=== PATIENT | male | born 1990 | race American Indian/Alaskan Native ===

== ENCOUNTER 2018-11-29 23:00 | Emergency (ER) | payer OTHER ==
[2018-11-29 23:28] VITALS: BP 139/93
--- NOTE | 2018-11-29 23:44 | Emergency Department Report ---
ED Trauma HPI - General Chief Complaint: Multiple Trauma Stated Complaint: FALL Time Seen by Provider: 11/29/18 23:30 Source: patient, EMS Exam Limitations: no limitations - History of Present Illness Initial Comments: Patient is a 28-year-old male that presents emergency room with complaints of headache, left flank pain and left knee pain and left upper arm pain and right hand pain and abrasions. Patient states he was working on a swift and fell off. Patient denies loss of consciousness. Complaining of a headache at a 10 out of 10. Patient states that he fell approximately 10-12 feet. Patient denies chest pain and shortness of breath. Patient is complaining of flank pain at a 10 out of 10. Patient is complaining of arm and knee pain and hand pain at a 8 out of 10. Patient denies radiating pain. Patient states he is unclear on some of the details. Patient states when he fell he fell directly on his right hand and head and neck. Occurred: just prior to arrival Severity: severe Pain Location: head Method of Injury: fall Modifying Factors: improves with: movement, rest Loss of Consciousness: no loss of consciousness Associated Symptoms (Fall): abdominal pain, headache. denies: chest pain, confusion, dizziness, lightheadedness, muscle spasms, nausea/vomiting, neck pain, ringing in ears, seizures, shortness of breath, trouble walking, vision changes Allergies/Adverse Reactions: Allergies Penicillins Allergy (Verified 11/29/18 23:04) Unknown Home Medications: Ambulatory Orders Metaxalone [Skelaxin] 800 mg PO TID PRN #15 tablet 11/30/18 Tramadol HCl [Ultram] 50 mg PO Q6HR PRN #12 tablet 11/30/18 ED Review of Systems ROS: Stated complaint: FALL Other details as noted in HPI Constitutional: denies: chills, fever Eyes: denies: eye pain, eye discharge, vision change ENT: denies: ear pain, throat pain Respiratory: denies: cough, shortness of breath, wheezing Cardiovascular: denies: chest pain, palpitations Endocrine: no symptoms reported Gastrointestinal: abdominal pain. denies: nausea, diarrhea Genitourinary: denies: urgency, dysuria Musculoskeletal: back pain. denies: joint swelling, arthralgia Skin: denies: rash, lesions Neurological: headache. denies: weakness, paresthesias Psychiatric: denies: anxiety, depression Hematological/Lymphatic: denies: easy bleeding, easy bruising ED Past Medical Hx - Past Medical History Previous Medical History?: No - Surgical History Past Surgical History?: Yes Additional Surgical History: Hernia Repair - Family History Family history: no significant - Social History Smoking Status: Never Smoker Substance Use Type: None - Medications Home Medications: Home Medications Medication Instructions Recorded Confirmed Last Taken Type Metaxalone [Skelaxin] 800 mg PO TID PRN #15 tablet 11/30/18 Unknown Rx Tramadol HCl [Ultram] 50 mg PO Q6HR PRN #12 tablet 11/30/18 Unknown Rx ED Physical Exam - General Limitations: No Limitations General appearance: alert, in no apparent distress - Head Head exam: Present: other (laceration noted above right eye) - Eye Eye exam: Present: normal appearance, PERRL Pupils: Present: normal accommodation - Expanded Eye Exam Expanded Eyelids: Normal Inspection: Left, Swelling: Right (small superficial abrasion noted to rt upper lid. ) Pupils: Regular, Round: Bilateral, Reactive: Bilateral Sclera/Conjunctival: Normal Inspection: Bilateral - ENT ENT exam: Present: mucous membranes moist - Neck Neck exam: Present: normal inspection, tenderness - Respiratory Respiratory exam: Present: normal lung sounds bilaterally. Absent: respiratory distress, wheezes, rales, rhonchi - Cardiovascular Cardiovascular Exam: Present: regular rate, normal rhythm. Absent: systolic murmur, diastolic murmur, rubs, gallop - GI/Abdominal GI/Abdominal exam: Present: soft, tenderness (left flank tenderness and left lower quad ttp ), normal bowel sounds - Rectal Rectal exam: Present: deferred - Extremities Exam Extremities exam: Present: tenderness (left upper extremity abrasion and tenderness. Left knee tenderness. Right hand tenderness) - Back Exam Back exam: Present: tenderness (left flank tenderness and abrasions noted), CVA tenderness (L) - Neurological Exam Neurological exam: Present: alert, oriented X3 - Psychiatric Psychiatric exam: Present: normal affect, normal mood - Skin Skin exam: Present: warm, dry, normal color, abrasion. Absent: rash ED Course Vital Signs 11/29/18 11/29/18 23:20 23:22 Temperature 98.7 F 98.7 F Pulse Rate 63 59 L Respiratory 16 20 Rate Blood Pressure 139/93 139/93 O2 Sat by Pulse 100 100 Oximetry - Reevaluation(s) Reevaluation #1: Initial evaluation done. Patient was placed in a c-collar until C-spine cleared by CT scan. Patient is unclear on some of the details. 11/29/18 23:47 Patient is resting in bed. CT scans are pending. 11/30/18 02:[address] neck negative. Discussed results with patient. C-collar removed 11/30/18 03:59 Discussed all results with patient. Patient is stable for discharge. Patient discharged home. Patient given discharge instructions. 11/30/18 04:25 ED Medical Decision Making - Lab Data Result diagrams: 11/29/18 23:58 11/29/18 23:58 - Radiology Data Radiology results: report reviewed, image reviewed PROCEDURE: XR KNEE 4+V LT TECHNIQUE: 4 views of the left knee. HISTORY: Pain/fall. COMPARISONS: None available FINDINGS: Osseous mineralization is normal. There is no acute fracture identified. No significant degenerative change. Suggested small suprapatellar joint effusion. IMPRESSION: No acute fracture or dislocation. Suggested small suprapatellar joint effusion. PROCEDURE: XR HUMERUS 2+V LT TECHNIQUE: 4 views of the left humerus. HISTORY: Pain, fall. COMPARISONS: None available. FINDINGS: Osseous mineralization normal. There is no acute fracture or dislocation involving the left humerus. No abnormal soft tissue calcification. IMPRESSION: No acute left humerus osseous abnormality. PROCEDURE: XR HAND 3+V RT TECHNIQUE: 3 views of the right hand. HISTORY: pain,. fall COMPARISONS: None available. FINDINGS: Osseous mineralization is normal. Mild remodeling at the index finger distal phalanx, chronic appearance. No acute fracture. Suggested mild degenerative changes at the middle finger metacarpal phalangeal joint. Incidental osseous lunotriquetral coalition. IMPRESSION: 1. Mild degenerative changes of the middle finger metacarpophalangeal articulation remodeling of the index finger distal phalanx, chronic appearance. 2. No acute osseous abnormality. PROCEDURE: CT CERVICAL SPINE WO CON TECHNIQUE: Computerized tomography of the cervical spine was performed from the skull base to T1 without contrast material. CT DOSE LENGTH PRODUCT: mGycm HISTORY: fall./ pain. COMPARISONS: None . FINDINGS: The skull base and foramen magnum are intact. The cervical vertebrae are intact. C1-2: No significant abnormality . C2-3: No significant abnormality . C3-4: No significant abnormality . C4-5: No significant abnormality . C5-6: No significant abnormality . C6-7: No significant abnormality . C7-T1: No significant abnormality . Fractures: None . Other: Soft tissues are unremarkable. . IMPRESSION: No significant abnormality . PROCEDURE: CT HEAD/BRAIN WO CON TECHNIQUE: Computerized tomography of the head was performed without contrast material. CT DOSE LENGTH PRODUCT: mGycm HISTORY: head injury COMPARISONS: None . FINDINGS: Skull and scalp: Normal . Paranasal sinuses: Normal . Ventricles and subarachnoid spaces: Normal . Cerebrum: No evidence of hemorrhage, acute infarction or mass . Cerebellum and brainstem: No evidence of hemorrhage, acute infarction or mass . Vasculature: Normal . IMPRESSION: Normal Examination . PROCEDURE: CT THORACIC SPINE WO CON TECHNIQUE: Computerized axial tomography of the thoracic spine was performed from C7 - L1 without contrast material. CT DOSE LENGTH PRODUCT: mGycm HISTORY: fall./ pain. COMPARISONS: None . FINDINGS: There are no fractures or malalignments. The disc spaces are normal. The facet joints are intact. There is no spinal or foraminal stenosis. Soft tissues are unremarkable. IMPRESSION: There is no acute bony or soft tissue abnormality. . PROCEDURE: CT LUMBAR SPINE WO CON TECHNIQUE: Computerized axial tomography of the lumbar spine was performed from T12 to the sacrum without contrast material. CT DOSE LENGTH PRODUCT: mGycm HISTORY: fall./ pain. COMPARISONS: None . FINDINGS: There are no fractures or malalignments. The disc spaces are normal. The facet joints are intact. L1-2: No significant abnormality . L2-3: No significant abnormality . L3-4: No significant abnormality . L4-5: No significant abnormality . L5-S1: No significant abnormality . Other: Sacrum and sacroiliac joints are intact. Soft tissues are unremarkable. . IMPRESSION: No significant abnormality . PROCEDURE: CT ABDOMEN PELVIS W CON TECHNIQUE: CT imaging is obtained through the abdomen and pelvis following intravenous administration of contrast with acquisition and arterial and delayed phases. Transaxial, coronal and sagittal reformations are provided HISTORY: fall./ pain. COMPARISONS: None FINDINGS: Partially visualized intrathoracic contents are unremarkable. In the left hepatic lobe on axial series 2, image 46 there is a round, circumscribed 5.4 x 4.7 cm enhancing mass with central area of hypoenhancement. The liver, gallbladder, pancreas, spleen, and adrenal glands are otherwise unremarkable. Kidneys show no worrisome lesions, hydronephrosis, or calculi. Urinary bladder is unremarkable. Small and large bowel are normal in caliber. Appendix is normal. No free air, free fluid, or lymphadenopathy identified. Aorta is normal in course and caliber. Superficial soft tissues are unremarkable. No acute or aggressive appearing skeletal findings. IMPRESSION: No acute findings in the abdomen or pelvis. No fractures. Incidental left hepatic lobe circumscribed enhancing 5.4 x 4.7 cm mass. Focal nodular hyperplasia is favored. Differential diagnosis includes hemangioma and less likely adenoma. Routine follow-up MRI is suggested for additional characterization. - Medical Decision Making Patient is a 28-year-old male presents emergency room with a fall off a crate of approximately 10-12 feet. Patient sustained a head injury as well as a eyelid abrasion and multiple other superficial lacerations. Patient did not require any closure of these abrasions due to being superficial. Patient wounds were cleaned and dressed with a sterile dressing. Patient had multiple CTs done. Patient's x-rays and CTs were all negative. Patient's labs were unremarkable. Patient given CT results. Patient will need follow-up for his CT abdomen finding of his liver. Patient will require an MRI as an outpatient. He does follow with his primary care for further evaluation of his liver findings. Patient stable for discharge. Patient discharged home. Patient given discharge instructions. Patient was understanding of discharge instructions. - Differential Diagnosis head injury. Concussion. Abrasion. Fracture, strain, contusion, sprain Critical care attestation.: If time is entered above; I have spent that time in minutes in the direct care of this critically ill patient, excluding procedure time. ED Disposition Clinical Impression: Right hand pain, Left upper arm pain, Acute left flank pain Head injury Qualifiers: Encounter type: initial encounter Qualified Code(s): S09.90XA - Unspecified injury of head, initial encounter Eyelid abrasion Qualifiers: Encounter type: initial encounter Laterality: right Qualified Code(s): S00.211A - Abrasion of right eyelid and periocular area, initial encounter Left knee pain Qualifiers: Chronicity: acute Qualified Code(s): M25.562 - Pain in left knee Abrasion of left upper arm Qualifiers: Encounter type: initial encounter Qualified Code(s): S40.812A - Abrasion of left upper arm, initial encounter Fall Qualifiers: Encounter type: initial encounter Qualified Code(s): W19.XXXA - Unspecified fall, initial encounter Abrasion of back Qualifiers: Encounter type: initial encounter Laterality: left Qualified Code(s): S20.412A - Abrasion of left back wall of thorax, initial encounter Concussion Qualifiers: Encounter type: initial encounter Loss of consciousness presence/duration: without LOC Qualified Code(s): S06.0X0A - Concussion without loss of consciousness, initial encounter Disposition: TO HOME OR SELFCARE Is pt being admited?: No Does the pt Need Aspirin: No Condition: Stable Instructions: Minor Head Injury (ED), Contusion in Adults (ED), Abrasion (ED), Knee Pain (ED) Additional Instructions: Patient to follow-up with primary care 2-3 days. Patient to follow-up with orthopedist in 2-3 days. Patient to return to ER if condition worsens. Patient to be off work for 2 days. Patient to take meds as directed. Patient to rest. Patient to increase water. Patient to take Tylenol or ibuprofen when nece ssary for pain. Prescriptions: Metaxalone [Skelaxin] 800 mg PO TID PRN #15 tablet PRN Reason: pain/spasms Tramadol HCl [Ultram] 50 mg PO Q6HR PRN #12 tablet PRN Reason: pain Referrals: CAMILA OSPINA MD [Primary Care Provider] - 2-3 Days ADAL ROD MD [Staff Physician] - 2-3 Days Forms: Work/School Release Form(ED) Time of Disposition: 04:43
[2018-11-30 00:16] LABS: Hematocrit 41.4 % (35.5-45.6); Hemoglobin 13.5 gm/dl (11.8-15.2); Mean Corpuscular HGB Conc 33 % (32-34); Mean Corpuscular Volume 84 fl (84-94); Platelet Count 332 K/mm3 (140-440); Red Blood Count 4.92 M/mm3 (3.65-5.03)
[2018-11-30 00:38] LABS: Alanine Aminotransferase 18 units/L (7-56); Albumin 4.2 g/dL (3.9-5); BUN/Creatinine Ratio 8; Blood Urea Nitrogen 8 mg/dL (9-20); Calcium 9.1 mg/dL (8.4-10.2); Hemolysis Index 10
--- NOTE | 2018-11-30 01:06 | XRay Report ---
PROCEDURE: XR HAND 3+V RT TECHNIQUE: 3 views of the right hand. HISTORY: pain,. fall COMPARISONS: None available. FINDINGS: Osseous mineralization is normal. Mild remodeling at the index finger distal phalanx, chronic appeara nce. No acute fracture. Suggested mild degenerative changes at the middle finger metacarpal phalangeal joint. Incidental osse ous lunotriquetral coalition. IMPRESSION: 1. Mild degenerative changes of the middle finger metacarpophalangeal articulation remodeling of the index finger distal phalanx, chronic appearance. 2. No acute osseous abnormality. This document is electronically signed by Fidel Means DO., November 30 2018 01:05:00 AM ET
--- NOTE | 2018-11-30 01:08 | XRay Report ---
PROCEDURE: XR HUMERUS 2+V LT TECHNIQUE: 4 views of the left humerus. HISTORY: Pain, fall. COMPARISONS: None available. FINDINGS: Osseous mineralization normal. There is no acute fracture or dislocation involving the left humerus. No abnormal soft tissue calcification. IMPRESSION: No acute left humerus osseous abnormality. This document is electronically signed by Fidel Means DO., November 30 2018 01:06:39 AM ET
--- NOTE | 2018-11-30 01:09 | XRay Report ---
PROCEDURE: XR KNEE 4+V LT TECHNIQUE: 4 views of the left knee. HISTORY: Pain/fall. COMPARISONS: None available FINDINGS: Osseous mineralization is normal. There is no acute fracture identified. No significant degenerative change. Suggested small suprapatellar joint effusion. IMPRESSION: No acute fracture or dislocation. Suggested small suprapatellar joint effusion. This document is electronically signed by Fidel Means DO., November 30 2018 01:08:13 AM ET
--- NOTE | 2018-11-30 03:45 | Cat Scan Report ---
PROCEDURE: CT HEAD/BRAIN WO CON TECHNIQUE: Computerized tomography of the head was performed without contrast material. CT DOSE LENGTH PRODUCT: mGycm HISTORY: head injury COMPARISONS: None . FINDINGS: Skull and scalp: Normal . Paranasal sinuses: Normal . Ventricles and subarachnoid spaces: Normal . Cerebrum: No evidence of hemorrhage, acute infarction or mass . Cerebellum and brainstem: No evidence of hemorrhage, acute infarction or mass . Vasculature: Normal . IMPRESSION: Normal Examination . This document is electronically signed by Darnell Mack MD., November 30 2018 03:43:16 AM ET
--- NOTE | 2018-11-30 04:02 | Cat Scan Report ---
PROCEDURE: CT CERVICAL SPINE WO CON TECHNIQUE: Computerized tomography of the cervical spine was performed from the skull base to T1 wit hout contrast material. CT DOSE LENGTH PRODUCT: mGycm HISTORY: fall./ pain. COMPARISONS: None . FINDINGS: The skull base and foramen magnum are intact. The cervical vertebrae are intact. C1-2: No significant abnormality . C2-3: No significant abnormality . C3-4: No significant abnormality . C4-5: No significant abnormality . C5-6: No significant abnormality . C6-7: No significant abnormality . C7-T1: No significant abnormality . Fractures: None . Other: Soft tissues are unremarkable. . IMPRESSION: No significant abnormality . This document is electronically signed by Darnell Mack MD., November 30 2018 04:00:08 AM ET
--- NOTE | 2018-11-30 04:03 | Cat Scan Report ---
PROCEDURE: CT THORACIC SPINE WO CON TECHNIQUE: Computerized axial tomography of the thoracic spine was performed from C7 - L1 without co ntrast material. CT DOSE LENGTH PRODUCT: mGycm HISTORY: fall./ pain. COMPARISONS: None . FINDINGS: There are no fractures or malalignments. The disc spaces are normal. The facet joints are intact. The re is no spinal or foraminal stenosis. Soft tissues are unremarkable. IMPRESSION: There is no acute bony or soft tissue abnormality. . This document is electronically signed by Darnell Mack MD., November 30 2018 04:01:31 AM ET
[2018-11-30] MEDS ORDERED: POLYSPORIN TP ONE (04:16)
--- NOTE | 2018-11-30 04:17 | Cat Scan Report ---
PROCEDURE: CT LUMBAR SPINE WO CON TECHNIQUE: Computerized axial tomography of the lumbar spine was performed from T12 to the sacrum wi thout contrast material. CT DOSE LENGTH PRODUCT: mGycm HISTORY: fall./ pain. COMPARISONS: None . FINDINGS: There are no fractures or malalignments. The disc spaces are normal. The facet joints are intact. L1-2: No significant abnormality . L2-3: No significant abnormality . L3-4: No significant abnormality . L4-5: No significant abnormality . L5-S1: No significant abnormality . Other: Sacrum and sacroiliac joints are intact. Soft tissues are unremarkable. . IMPRESSION: No significant abnormality . This document is electronically signed by Darnell Mack MD., November 30 2018 04:15:17 AM ET
[2018-11-30] MEDS ORDERED: TRIPLE ANTIBIOTIC TP ONE (04:20)
--- NOTE | 2018-11-30 04:45 | Cat Scan Report ---
PROCEDURE: CT ABDOMEN PELVIS W CON TECHNIQUE: CT imaging is obtained through the abdomen and pelvis following intravenous administratio n of contrast with acquisition and arterial and delayed phases. Transaxial, coronal and sagittal refo rmations are provided HISTORY: fall./ pain. COMPARISONS: None FINDINGS: Partially visualized intrathoracic contents are unremarkable. In the left hepatic lobe on axial series 2, image 46 there is a round, circumscribed 5.4 x 4.7 cm enh ancing mass with central area of hypoenhancement. The liver, gallbladder, pancreas, spleen, and adren al glands are otherwise unremarkable. Kidneys show no worrisome lesions, hydronephrosis, or calculi. Urinary bladder is unremarkable. Small and large bowel are normal in caliber. Appendix is normal. No free air, free fluid, or lymphade nopathy identified. Aorta is normal in course and caliber. Superficial soft tissues are unremarkable. No acute or aggressive appearing skeletal findings. IMPRESSION: No acute findings in the abdomen or pelvis. No fractures. Incidental left hepatic lobe circumscribed enhancing 5.4 x 4.7 cm mass. Focal nodular hyperplasia is favored. Differential diagnosis includes hemangioma and less likely adenoma. Routine follow-up MRI is suggested for additional characterization. This document is electronically signed by Francisco Schwab MD., November 30 2018 04:43:03 AM ET
== END 2018-11-30 04:46 | disposition home or self-care (01) ==
LOC: ED 23:00
DX: S06.0X0A Concussion without loss of consciousness, initial encounter (principal); S20.412A Abrasion of left back wall of thorax, initial encounter; S40.812A Abrasion of left upper arm, initial encounter; S00.211A Abrasion of right eyelid and periocular area, initial encounter; M25.562 Pain in left knee; W18.30XA Fall on same level, unspecified, initial encounter; Y93.89 Activity, other specified; Y92.89 Other specified places as the place of occurrence of the external cause; Y99.8 Other external cause status
CPT/HCPCS: 36415; 70450; 72125; 72128; 72131; 73060; 73130; 73564; 74177; 80053; 85027; 99284; Q9967; A6250